=== PATIENT | female | born 1985 | race African-American/Black ===

== ENCOUNTER 2017-09-13 15:30 | Emergency (ER) | payer MEDICAID ==
[~2017-09-13] VITALS: Ht 167.6 cm; Wt 87.3 kg
[2017-09-13] MEDS ORDERED: DEXAMETHASONE 4 MG TABLET PO STA (17:06)
[2017-09-13] MEDS ORDERED: DEXAMETHASONE 4 MG TABLET ONE (17:25)
[2017-09-13 17:44] VITALS: BP 120/67
== END 2017-09-13 17:49 | disposition home or self-care (01) ==
LOC: ED 17:40
DX: J20.8 Acute bronchitis due to other specified organisms (principal); J02.8 Acute pharyngitis due to other specified organisms
CPT/HCPCS: 71046; 87081; 87880; 99285

== ENCOUNTER 2019-01-31 12:23 | Emergency (ER) | payer MEDICAID ==
[~2019-01-31] VITALS: Ht 167.6 cm; Wt 89.1 kg
[2019-01-31 12:27] VITALS: BP 119/85
[2019-01-31 12:45] LABS: BASOPHILS # (AUTO) 0.02 x10^3/uL (0-0.1); BASOPHILS % (AUTO) 0 % (0-1); EOSINOPHILS # (AUTO) 0.05 x10^3/uL (0-0.4); EOSINOPHILS % (AUTO) 1 % (1-7); LYMPHOCYTES # (AUTO) 1.85 x10^3/uL (1-3.4); LYMPHOCYTES % (AUTO) 24 % (22-44); MD NO; MEAN CORPUSCULAR HEMOGLOBIN 30.8 pg (27.0-34.8); MEAN CORPUSCULAR HGB CONC 32.1 g/dL (32.4-35.8); MEAN CORPUSCULAR VOLUME 95.9 fL (80-100); MEAN PLATELET VOLUME 8.2 fL (7.4-10.4); MONOCYTES % (AUTO) 8 % (2-9); NEUTROPHILS # (AUTO) 5.28 x10^3/uL (1.8-6.8); NEUTROPHILS % (AUTO) 68 % (42-75); PLATELET COUNT 251 x10^3/uL (130-400); RED BLOOD COUNT 4.19 x10^6/uL (3.82-5.3); RED CELL DISTRIBUTION WIDTH 14.3 % (9.6-15.2)
[2019-01-31 12:57] LABS: ALANINE AMINOTRANSFERASE 20 U/L (12-78); ALBUMIN 3.9 g/dL (3.4-5.0); ANION GAP 4 mmol/L (5-15); CALCIUM 8.8 mg/dL (8.5-10.1); CHLORIDE 110 mmol/L (98-107); CREATININE 0.96 mg/dL (0.55-1.02)
[2019-01-31 13:01] LABS: ALKALINE PHOSPHATASE 54 U/L (45-117); BILIRUBIN,TOTAL 0.4 mg/dL (0.2-1.0)
--- NOTE | 2019-01-31 13:35 | NUR ---
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 PATIENT VERBALLY UPSET BECAUSE SHE HAS BEEN WAITING FOR OVER 30 MINUTES. PATIENT STATES "WHAT THE HELL ARE YOU GUYS DOING BACK THERE?"EXPLAINED TO PATIENT THE PROCESS AND THAT WE WILL ATTEMPT TO GET HER BACK SOON POSSIBLE.
--- NOTE | 2019-01-31 13:41 | NUR ---
CALLED FOR ROOM, NO ANSWER.
--- NOTE | 2019-01-31 13:53 | NUR ---
called from room no answer
--- NOTE | 2019-01-31 14:09 | NUR ---
CALLED FOR ROOM, NO ANSWER
== END 2019-01-31 14:13 | disposition left against medical advice (07) ==
LOC: ED 14:07
DX: R10.31 Right lower quadrant pain (principal); R10.2 Pelvic and perineal pain
CPT/HCPCS: 36415; 80053; 84703; 85025; 99283